=== PATIENT | male | born 1965 | race Caucasian/White ===

== ENCOUNTER 2018-09-13 20:30 | Outpatient (CLI) | payer BC | END 2018-09-13 20:31 | disposition home or self-care (01) | LOC: SLEEPLAB 20:30 | PROVIDERS: ATTEND Family Medicine | DX: G47.10 Hypersomnia, unspecified (principal); R06.83 Snoring; F32.9 Major depressive disorder, single episode, unspecified; G47.33 Obstructive sleep apnea (adult) (pediatric) | CPT/HCPCS: 95811 ==

== ENCOUNTER 2018-11-30 13:19 | Outpatient (CLI) | payer BC ==
--- NOTE | 2018-11-30 13:44 | RAD ---
RADIOGRAPH CHEST 2 VIEWS: DATE: 11/30/2018 HISTORY: 53-year-old male with dyspnea. FINDINGS: There is no airspace density, pulmonary edema, pleural effusion, pneumothorax, or cardiomegaly. IMPRESSION: No acute cardiopulmonary findings.
== END 2018-11-30 13:20 | disposition home or self-care (01) ==
LOC: RAD 13:19
PROVIDERS: ATTEND Internal Medicine Pulmonary Disease
DX: R06.00 Dyspnea, unspecified (principal)
CPT/HCPCS: 71046

== ENCOUNTER 2019-11-10 07:06 | Outpatient (CLI) | payer BC ==
--- NOTE | 2019-11-10 07:50 | ULT ---
Exam: Left lower extremity venous ultrasound with Doppler HISTORY: Left lower extremity swelling COMPARISON: None TECHNIQUE: Grayscale, color flow, Doppler imaging and spectral wave muscle performed left lower extre mity venous system FINDINGS: There is compressibility, presence of flow and augmentation in the common femoral vein, femoral vein and popliteal vein. There is flow in the posterior tibial vein. There is flow in the greater saphenous vein and profunda femoral vein IMPRESSION: No thrombus in the left lower extremity deep venous system.
== END 2019-11-10 07:07 | disposition home or self-care (01) ==
LOC: BICULT 07:06
PROVIDERS: ATTEND Family Medicine
DX: M79.89 Other specified soft tissue disorders (principal)

== ENCOUNTER 2020-11-01 11:02 | Observation (INO) | payer BC ==
[~2020-11-01 11:02] MED LIST: Iopamidol-370 76% 500 ML 1 ML ONE
[2020-11-01] MEDS ORDERED: Aspirin Chewable 81 MG TAB ONE (11:45)
[2020-11-01 12:04] LABS: #Eosinphils 0.3 thou/uL (0.0-0.7); #Lymphocytes 1.6 thou/uL (1.20-3.40); #Monocytes 0.5 thou/uL (0.11-0.59); #Neutrophils 3.6 thou/uL (1.40-6.50); %Basophils 0.7 % (0.0-1.0); %Eosinophils 5.6 % (0.0-10.0); %Lymphocytes 26.2 % (21.0-51.0); %Monocytes 8.2 % (0.0-10.0); %Neutrophils 59.3 % (42.0-75.0); Hemoglobin 13.1 g/dL (14.0-18.0); Mean Corpuscular HGB CONC 33.2 g/dL (32.0-36.0); Mean Corpuscular Hemoglobin 29.9 pg (27.0-31.0); Mean Corpuscular Volume 90.1 fL (78.0-98.0); Mean Platelet Volume 8.9 fL (7.4-10.4); Platelet Count 155 thou/uL (130-400); Red Blood Cell (RBC) Count 4.38 mill/uL (4.70-6.10); White Blood Cell (WBC) Count 6.1 thou/uL (4.8-10.8)
[2020-11-01 12:28] LABS: ALT (SGPT) 17 U/L (8-55); AST (SGOT) 16 U/L (5-34); Albumin 3.9 g/dL (3.5-5.0); Alkaline Phosphatase 113 U/L (40-110); Anion Gap 9 mmol/L (10-20); BUN (Urea Nitrogen) 10 mg/dL (8.4-25.7); Bilirubin, Total 0.4 mg/dL (0.2-1.2); Calc. Creatinine Clearance 0 mL/min (70-130); Calcium 8.8 mg/dL (7.8-10.44); Carbon Dioxide 24 mmol/L (22-29); Chloride 112 mmol/L (98-107); Globulin 2.4 g/dL (2.4-3.5); Glucose 89 mg/dL (70-105); Potassium 3.6 mmol/L (3.5-5.1); Protein, Total 6.3 g/dL (6.0-8.3); Sodium 141 mmol/L (136-145)
[2020-11-01] MEDS ORDERED: Acetaminophen 650 MG Suppository PR PRN (14:52)
[2020-11-01] MEDS ORDERED: Acetaminophen 325 MG TAB PO PRN (14:52)
[2020-11-01] MEDS ORDERED: Aspirin 325 MG TAB PO SCH (15:00)
[2020-11-01 15:20] LABS: Hemoglobin A1c 4.9 % (4.0-6.0)
[2020-11-01 15:23] LABS: Troponin I Less than 0.010 ng/mL (< 0.028)
[2020-11-01 16:45] VITALS: BMI 29.7
[2020-11-01 18:37] LABS: Troponin I Less than 0.010 ng/mL (< 0.028)
[2020-11-01] MEDS ORDERED: Montelukast Sodium 10 mg Tablet PO SCH (21:00)
[2020-11-01] MEDS ORDERED: Latanoprost 0.005% Ophth Soln 2.5 ml Bottle EA EYE SCH (21:00)
[2020-11-01] MEDS: DorzolamidE/Timolol 2%/0.5% Ophth Soln 10 ml Bottle EA EYE SCH (21:35)
[2020-11-02 05:22] LABS: #Basophils 0.1 thou/uL (0.0-0.2); #Eosinphils 0.3 thou/uL (0.0-0.7); #Lymphocytes 1.6 thou/uL (1.20-3.40); #Monocytes 0.7 thou/uL (0.11-0.59); #Neutrophils 5.4 thou/uL (1.40-6.50); %Basophils 0.7 % (0.0-1.0); %Lymphocytes 19.6 % (21.0-51.0); %Monocytes 8.5 % (0.0-10.0); %Neutrophils 67.2 % (42.0-75.0); Hemoglobin 12.7 g/dL (14.0-18.0); Mean Corpuscular HGB CONC 32.9 g/dL (32.0-36.0); Mean Corpuscular Hemoglobin 29.7 pg (27.0-31.0); Mean Corpuscular Volume 90.4 fL (78.0-98.0); Mean Platelet Volume 9.2 fL (7.4-10.4); Platelet Count 143 thou/uL (130-400); RBC Distribution Width 11.9 % (11.5-14.5); Red Blood Cell (RBC) Count 4.26 mill/uL (4.70-6.10)
[2020-11-02 05:48] LABS: Anion Gap 9 mmol/L (10-20); BUN (Urea Nitrogen) 10 mg/dL (8.4-25.7); Calc. Creatinine Clearance 122 mL/min (70-130); Calcium 8.6 mg/dL (7.8-10.44); Carbon Dioxide 27 mmol/L (22-29); Chloride 111 mmol/L (98-107); Cholesterol 136 mg/dl (< 200 Desired); Glucose 90 mg/dL (70-105); HDL Cholesterol 34 mg/dL (>60 Neg Risk); LDL Cholesterol, Calculated 75 mg/dL; Potassium 3.8 mmol/L (3.5-5.1); Sodium 143 mmol/L (136-145); Triglycerides 137 mg/dL (Less than 150)
[2020-11-02] MEDS ORDERED: Aspirin Chewable 81 MG TAB PO SCH (09:00)
[2020-11-02] MEDS: DorzolamidE/Timolol 2%/0.5% Ophth Soln 10 ml Bottle EA EYE SCH (09:50)
[2020-11-02 16:37] VITALS: BP 110/66; TEMP 98.7
[2020-11-02] MEDS ORDERED: Mometasone 100 MCG/Formoterol 5 MCG 120 PUFF INHALER INH SCH (18:30)
== END 2020-11-02 17:22 | disposition home or self-care (01) ==
LOC: ERS 11:02 → 2SW 14:34
PROVIDERS: ADMIT Internal Medicine; ATTEND Internal Medicine
DX: R07.89 Other chest pain (principal); D64.9 Anemia, unspecified; R60.0 Localized edema; R06.02 Shortness of breath; J45.20 Mild intermittent asthma, uncomplicated; H40.9 Unspecified glaucoma; E78.5 Hyperlipidemia, unspecified; I08.3 Combined rheumatic disorders of mitral, aortic and tricuspid valves; Z79.899 Other long term (current) drug therapy
CPT/HCPCS: 36415; 71045; 71275; 80048; 80053; 80061; 83036; 83880; 84484; 85025; 85379; 93005; 93017; 93306; 93970; 94760; G0378; Q9967